=== PATIENT | female | born 1985 | race Caucasian/White ===

== ENCOUNTER 2023-05-30 21:01 | Emergency (ER) | payer OTHER ==
[~2023-05-30] VITALS: Ht 162.6 cm; Wt 63.5 kg
[2023-05-30 22:20] VITALS: BP 128/83; TEMP 98; O2SAT 97
== END 2023-05-30 22:21 | disposition home or self-care (01) ==
LOC: ER 21:10
DX: O22.40 Hemorrhoids in pregnancy, unspecified trimester (principal); K59.00 Constipation, unspecified; E11.9 Type 2 diabetes mellitus without complications; E03.9 Hypothyroidism, unspecified; Z3A.00 Weeks of gestation of pregnancy not specified